=== PATIENT | female | born 1970 | race African-American/Black ===

== ENCOUNTER 2016-12-22 07:28 | Emergency (ER) | payer BC ==
[~2016-12-22] VITALS: Ht 160 cm; Wt 109.0 kg
[2016-12-22 07:34] VITALS: BP 118/72
[2016-12-22] MEDS ORDERED: ULTRAM50 MG PO (09:13)
[2016-12-22] MEDS ORDERED: NAPROSYN500 MG PO (09:13)
== END 2016-12-22 09:44 | disposition home or self-care (01) ==
LOC: EME 07:28
DX: S99.921A Unspecified injury of right foot, initial encounter (principal); X50.1XXA Overexertion from prolonged static or awkward postures, initial encounter; Y93.K9 Activity, other involving animal care; Y92.9 Unspecified place or not applicable; M25.571 Pain in right ankle and joints of right foot
CPT/HCPCS: 73630; 99281; 99284; J1885